=== PATIENT | male | born 1990 | race Caucasian/White ===

== ENCOUNTER 2016-07-20 09:16 | Emergency (ER) | payer OTHER ==
[~2016-07-20] VITALS: Ht 175.3 cm; Wt 77.3 kg
[2016-07-20 09:24] VITALS: BP 140/86; PULSE 67; RESP 16; O2SAT 96
--- NOTE | 2016-07-20 09:40 | ED.REPORT ---
HPI-Eye Problem Date of Service Jul 20, 2016 ED Provider: Kevin Craig DO The patient is a 26 year old male who presents to the emergency department complaining of left eye pain that began 1 hour ago. The patient was at work using bark when some dust flew up into his eye. He denies any other injuries. He does not wear contacts. Nursing Notes Stated Complaint: SOMETHING IN LT EYE Chief Complaint: Eye Nursing Notes Reviewed: Yes Allergies: Coded Allergies: No Known Allergies (Unverified , 07/20/16) Scheduled Erythromycin Ophth Oint (Erythromycin Ophth Oint) 3.5 Gm Oint...g. 1 APPL OP QID 1/2inch ribbon Scheduled PRN Hydrocodone-Acetaminophen 5-325 mg (Hydrocodone-Acetaminophen 5-325 mg) 1 Each Tablet 1 TABLET PO Q4H PRN PRN For Pain Ibuprofen (Ibuprofen) 600 Mg Tablet 600 MG PO QID PRN PRN For Pain General Time Seen by MD: 09:38 Chief Complaint Left eye affected, Foreign body sensation Hx Obtained From: Patient Arrived By: Walk-in Sudden in Onset?: Yes Onset Occurred: 1 - 4 hours ago Symptom Duration: Since onset Progression Since Onset: Constant Caused by: Foreign body in eye Location: : Eye left Quality: Painful Severity: Current: Moderate Severity: Maximum: Moderate Relieved by: Irrigation Recent Healthcare: No recent hospitalization Similar Sx Previous: No Past Medical History Past Medical History None Family History Noncontributory Smoking History Unknown if Ever Smoker Social History Other Social History: Local resident Ambulatory Status Independent Review of Systems Eyes: Reports: Eye pain left Complete sys rev & neg: except as marked. Physical Exam Initial Vital Signs Vital Signs (First) Date Time Temp Pulse Resp B/P Pulse Ox O2 Delivery O2 Flow Rate FiO2 07/20/16 09:24 36.6 67 16 140/86 96 Room Air Initial VS: Reviewed ENT: Mucous membranes moist, Conjunctiva normal, No scleral icterus Neck: Supple, Non-tender, Full range of motion Respiratory: No respiratory distress Extremities: Vascular intact, Neuro intact, No swelling, No tenderness Skin: Warm, Dry, No cyanosis Neurologic: Alert, Oriented, Nonfocal Psychiatric: Mood/affect normal, Behavior normal, Normal thought content Head / Eyes: Normocephalic, PERRL, EOMI Cornea/Anterior Chamber: Negative: Fluorescein uptake L..., Fluorescein uptake R... Left eye: No foreign body visualized. Both lids were swept. Upper lid everted, no foreign body. No hyphema. No hypopyon. General/Constitutional: Awake, Alert, Cooperative Procedures Slit Lamp Exam Time: 10:00 Procedure Performed by: ED physician Which Eye: Left Dilating Agent & Anesthesia: Anesthesia: Tetracaine Eyelid / Conjunctiva / Sclera: Eyelid(s) normal, Tear film clear, Conjunctiva normal, Sclera normal Cornea/Ant Chamber/Iris/Lens: Cornea normal, Ant chamber normal, Iris round, Lens normal Vitreous / Retina / Optic Nerv: Ant vitreous clear, Retina normal, Vasculature normal, Optic nerve normal Re-Eval/Medical Decision Med Decision/Clinical Course No obvious retained foreign body or corneal abrasion are found, his eye is improved after tetracaine. Discuss with ophthalmology who agrees to see the patient tomorrow. Placed on erythromycin ophthalmic ointment, Vicodin and Motrin. Return precautions given Source of Hx: Old records Re-Evaluation/Progress #1: Time of Eval: 10:00 Re-Evaluation/Progress Note: Complete thorough eye examination. Re-Evaluation/Progress #2: Time of Eval: 10:36 Re-Evaluation/Progress Note: He continues to have discomfort to his left eye. Discussed plan for additional saline irrigation. Re-Evaluation/Progress #3: Time of Eval: 11:02 Re-Evaluation/Progress Note: Rechecked the patient. His pain is still at about a 5/10. Re-Evaluation/Progress #4: Time of Eval: 11:20 Re-Evaluation/Progress Note: Discussed exam findings, diagnosis, and plan for discharge. All questions were addressed. Consultation : Referral / Consult Name: KARINA FREITAS MD Consulted With: Yard Person Call Returned at: 11:20 Human Performance Consultant: Will see in office, Agrees with eval, Agrees with plan Counseled Regarding: Diagnosis, Need for follow-up, When/why to return to ED Discharge & Departure Primary Impression: Foreign body, eye Encounter type: initial encounter Laterality: left Qualified Code: T15.92XA - Foreign body on external eye, part unspecified, left eye, initial encounter Disposition: Home Discharge Condition All VS Reviewed: Yes Condition: Stable Additional Instructions: Thank you for entrusting us with your care today. There is no evidence of any serious injuries to your eye. Apply the antibiotic ointment as prescribed. Use the eye drops as needed for your pain. We were able to schedule you an ophthalmology appointment today at 1:25 PM today at the [facility]. I recommend that you stay home from work for the next few days. Followup with your regular doctor if your symptoms continue. Return to the emergency department for any new or concerning symptoms. Referrals: Danae Victoria PA-C (PCP) KARINA FREITAS MD Attestation Portions of this note were transcribed by Tracie Duque. I, Dr. Craig personally performed the history, physical exam and medical decision-making; I reviewed and confirmed the accuracy of the information in the transcribed note. Signed by: Sharon Zeng, 07/20/2016 at 1145. copies to: Danae Victoria PA-C; KARINA FREITAS MD, Timothy S DO Jul 20, 2016 09:40 Tracie Duque Jul 20, 2016 09:49
[2016-07-20] MEDS ORDERED: Tetracaine 0.5% 4 mL Ophthalmic Solution BOTH_EYES ONE (09:50)
[2016-07-20] MEDS ORDERED: 0.9% Sodium Chloride Inhalation Solution ONE (09:58)
[2016-07-20] MEDS ORDERED: Fluorescein 0.6 mg Ophthalmic Strip ONE (09:58)
[2016-07-20] MEDS ORDERED: IBUP-1827 PO (11:20)
[2016-07-20] MEDS ORDERED: HYDR-4003 PO (11:20)
[2016-07-20] MEDS ORDERED: ERYT1OIN7 OP (11:20)
== END 2016-07-20 12:02 | disposition home or self-care (01) ==
LOC: SED 09:16
DX: T15.92XA Foreign body on external eye, part unspecified, left eye, initial encounter (principal); X58.XXXA Exposure to other specified factors, initial encounter; Y93.89 Activity, other specified; Y92.69 Other specified industrial and construction area as the place of occurrence of the external cause; Y99.0 Civilian activity done for income or pay